=== PATIENT | female | born 1955 | race Caucasian/White ===

== ENCOUNTER 2021-12-02 10:00 | Inpatient (IN) | payer OTHER, MEDICARE ==
[~2021-12-02] VITALS: Ht 154.9 cm; Wt 80.2 kg
[2021-12-08 14:52] LABS: BASOPHILS % (AUTO) 0.4 % (0-1); EOSINOPHILS # (AUTO) 0.4 X10'3 (0-0.9); EOSINOPHILS % (AUTO) 3.3 % (0-6); LYMPHOCYTES # (AUTO) 2.3 X10'3 (1.1-4.8); LYMPHOCYTES % (AUTO) 21.9 % (21-51); MEAN CORPUSCULAR HEMOGLOBIN 30.1 PG (27.0-31.0); MEAN CORPUSCULAR HGB CONC 33.6 g/dL (33.0-36.5); MEAN CORPUSCULAR VOLUME 89.5 FL (78-98); MEAN PLATELET VOLUME 7.2 FL (7.4-10.4); MONOCYTES # (AUTO) 0.9 X10'3 (0-0.9); MONOCYTES % (AUTO) 8.7 % (2-12); NEUTROPHILS % (AUTO) 65.7 % (42-75); PRE OP HEMATOCRIT 39.3 % (35.0-45.0); PRE OP HEMOGLOBIN 13.2 g/dL (12.0-16.0); PRE OP PLATELET COUNT 329 X10'3 (140-440); RED CELL DISTRIBUTION WIDTH 13.7 % (11.5-14.5)
[2021-12-08 15:13] LABS: CHLORIDE 100 MMOL/L (99-107); PRE OP GLUCOSE 104 MG/DL (70-104); PRE OP POTASSIUM 3.7 MMOL/L (3.4-5.1); PRE OP SODIUM 140 MMOL/L (135-145); TOTAL CARBON DIOXIDE 31.3 MMOL/L (24-32)
[2021-12-08 15:14] LABS: ALBUMIN 3.7 G/DL (3.4-5.0); ALBUMIN/GLOBULIN RATIO 0.9 (1.1-1.5); ALKALINE PHOSPHATASE 115 IU/L (46-116); BLOOD UREA NITROGEN 24 MG/DL (7-18); BUN/CREATININE RATIO 25.3 (6.6-38.0); CALCIUM 9.6 MG/DL (8.5-10.1); CREATININE 0.95 MG/DL (0.40-0.90); PRE OP ALT 21 U/L (30-65); PRE OP ANION GAP 9 (8-16); PRE OP AST 18 U/L (10-37); PRE OP BILIRUB, TOTAL 0.3 MG/DL (0.0-1.0); TOTAL PROTEIN 7.7 G/DL (6.4-8.2); eGFR 59 ML/MIN
[2021-12-08] MEDS ORDERED: MONT10TA21 PO (17:04)
[2021-12-08] MEDS ORDERED: MELA10TA2 PO (17:04)
[2021-12-08] MEDS ORDERED: METO-411 PO (17:04)
[2021-12-08] MEDS ORDERED: SALM50DI2 IH (17:04)
[2021-12-08] MEDS ORDERED: CELE-28 PO (17:04)
[2021-12-08] MEDS ORDERED: CHOL500044 PO (17:04)
[2021-12-08] MEDS ORDERED: HYDR25TA4 PO (17:04)
[2021-12-08] MEDS ORDERED: LISI10TA27 PO (17:04)
[2021-12-15] MEDS ORDERED: DULO30CA52 PO (16:07)
[2021-12-16] VITALS (22 sets, daily range): BP systolic 110–182; BP diastolic 59–95
[2021-12-16] MEDS ORDERED: ringers solution, lacted 1,000 ML IV SCH ×2 (05:00→09:55)
[2021-12-16] MEDS ORDERED: famotidine 20mg tablet PO ONE (05:30)
[2021-12-16] MEDS ORDERED: vancomycin 1,500 MG in NS 300ml IV soln IV ONE (05:30)
[2021-12-16] MEDS ORDERED: DOCUMENT DATE & TIME OF BETA-BLOCKER PO ONE (05:30)
[2021-12-16] MEDS ORDERED: tranexamic acid inj. 1,000 MG in normal saline IV soln 100ML IV ONE (05:30)
[2021-12-16] MEDS ORDERED: ceFAZolin inj. 2,000 MG in dextrose 5%-water 100 ML IV ONE (05:30)
--- NOTE | 2021-12-16 08:30 | NUR ---
CSM: PEDAL PULSES PRESENT AND MARKED. PATIENT USED MUPIROCIN CREAM AND WATCHED THE VIDEO. EDUCATED PATIENT ON THE USE OF THE INCENTIVE SPIROMETER AND ITS IMPORTANCE
[2021-12-16] MEDS ORDERED: ketorolac trometh. 30mg/ml inj. ONE (09:44)
[2021-12-16] MEDS ORDERED: epiNEPHrine 1 mg/ml inj ONE (09:44)
[2021-12-16] MEDS ORDERED: ROPIVAcaine 0.5% (5mg/ml) 30ml vial ONE ×2 (09:45→11:43)
[2021-12-16] MEDS ORDERED: vancomycin 1,000mg inj ONE (09:45)
[2021-12-16] MEDS ORDERED: morphine 10mg/ml inj. ONE (09:45)
[2021-12-16] MEDS ORDERED: morphine 2 MG/ML inj. syringe IV PRN (09:55)
[2021-12-16] MEDS ORDERED: morphine 4 MG/ML inj SYRINge IV PRN (09:55)
[2021-12-16] MEDS ORDERED: meperidine/PF 25mg/ml syringe IV PRN ×3 (09:55)
[2021-12-16] MEDS ORDERED: ondansetron/PF 4mg/2ml inj IV PRN ×2 (09:55→13:50)
[2021-12-16] MEDS ORDERED: proCHLORperazine 10 MG/2 ml inj IV PRN (09:55)
[2021-12-16] MEDS ORDERED: MIDAZolam 1mg/ml 10ml vial ONE (10:46)
[2021-12-16] MEDS ORDERED: fentaNYL/PF 50MCG/1 ML 2ML syringe ONE (10:47)
[2021-12-16] MEDS ORDERED: propofol inj 20 ML IV ONE (11:43)
[2021-12-16] MEDS ORDERED: ROPIVAcaine 0.2% (10 MG/5 ML) BOLUS INJECTION ADDCANAL PRN (13:10)
[2021-12-16] MEDS ORDERED: ROPIVAcaine 0.2%/PF PUMP/bolus 545 ML ADDCANAL SCH (13:10)
[2021-12-16] MEDS ORDERED: bacitracin 15gm ointment TP ONE (13:39)
[2021-12-16] MEDS ORDERED: naloxone 0.4 mg/ml inj IV PRN (13:50)
[2021-12-16] MEDS ORDERED: HYDROmorphone inj. 0.5 MG/0.5 ML DISP.SYRIN IV PRN (13:50)
[2021-12-16] MEDS ORDERED: HYDROmorphone 1 mg/ml syringe IV PRN (13:50)
[2021-12-16] MEDS ORDERED: magnesium hydroxide 30ml (MOM) UD suspension PO PRN (13:50)
[2021-12-16] MEDS ORDERED: acetaminophen 325mg tablet PO PRN (13:50)
[2021-12-16] MEDS ORDERED: diphenhydrAMINE 25mg capsule PO PRN ×2 (13:50)
[2021-12-16] MEDS ORDERED: oxyCODONE IR 5mg (immed. release) tablet PO PRN (13:50)
[2021-12-16] MEDS ORDERED: bisacodyl 10mg suppository rectal RC PRN (13:50)
--- NOTE | 2021-12-16 14:17 | NUR ---
Received from OR via BED, accompanied by Anesthesiologist and report given by HEATH Anesthesiologist. PATIENT WAKING UP, DENIES PAIN, V/S WNL, SCD ON, 20G TO RIGHT HAND-20G, drsg to LEFT KNEE C/D/I with ICE PACK. ON-Q CATHETER NOTED WITH DRESSING C/D/I AND WILL START ROPIVACAINE DRIP AT 2 CC/HR. JAEGER CATHETER DRAINING CLEAR YELLOW URINE. Addendum: 12/16/21 at 1447 by Sami Lloyd RN Amended: Links added.
--- NOTE | 2021-12-16 16:07 | NUR ---
PATIENT HAS MET ALL CRITERIA FOR TRANSFER TO THE SURGICAL FLOOR. VSS. DRESSINGS INTACT. BED LOW, CALL LIGHT PRESENT AND 2 RAILS UP. RN PRESENT TO ACCEPT CARE OF PATIENT AND REPORT HAS BEEN CALLED. ALL QUESTIONS ANSWERED TO ACCEPTING RN. Addendum: 12/16/21 at 1613 by Sami Lloyd RN Amended: Links added.
[2021-12-16] MEDS: acetaminophen 325mg tablet PO SCH ×2 (17:12→20:00)
[2021-12-16] MEDS ORDERED: tranexamic acid inj. 800 MG in normal saline 100ml IV soln 92 ML IV ONE (17:30)
[2021-12-16] MEDS: ceFAZolin/D5W- 1GM premix 50 ML IV SCH (17:54)
[2021-12-16] MEDS: potassium cl 20mEq in 1/2 NS 1,000 ML IV SCH ×2 (17:56→21:50)
[2021-12-16] MEDS ORDERED: vancomycin/NS 1 GM ADD-VANTAGE 250 ML IV SCH (20:00)
[2021-12-16] MEDS ORDERED: sennosides 8.6mg tablet PO SCH (21:00)
[2021-12-16] MEDS: gabapentin 300mg capsule PO SCH (21:07)
[2021-12-17 01:00] VITALS: BP 125/60
[2021-12-17] MEDS: ceFAZolin/D5W- 1GM premix 50 ML IV SCH (01:43)
[2021-12-17] MEDS: oxyCODONE IR 5mg (immed. release) tablet PO PRN ×3 (01:45→10:30)
[2021-12-17] MEDS: acetaminophen 325mg tablet PO SCH ×2 (02:00→08:00)
[2021-12-17 05:00] VITALS: BP 135/60
[2021-12-17] MEDS: potassium cl 20mEq in 1/2 NS 1,000 ML IV SCH (05:50)
--- NOTE | 2021-12-17 06:44 | NUR ---
Patient in room [facility]. I have received report from Pat and had the opportunity to ask questions and assume patient care.
[2021-12-17] MEDS ORDERED: enoxaparin 40mg/0.4ml syringe SQ SCH (08:00)
[2021-12-17] MEDS: gabapentin 300mg capsule PO SCH (08:13)
[2021-12-17 10:00] VITALS: BP 198/65
--- NOTE | 2021-12-17 10:27 | NUR ---
Pt s/p L knee arthroplasty this admit per EMR. Written High protein diet ed w/ RD contact info placed in pt chart. Addendum: 12/17/21 at [address] Amended: Links added.
[2021-12-17] MEDS ORDERED: celeCOXIB 100mg capsule PO SCH (20:00)
[2021-12-18] MEDS ORDERED: acetaminophen 325mg tablet PO PRN (13:50)
== END 2021-12-17 13:55 | disposition home or self-care (01) | DRG 470 ==
LOC: PAS IN 12-16 08:07 → SUR 3N 12-16 16:45
PROVIDERS: ADMIT Orthopaedic Surgery; ATTEND Orthopaedic Surgery
PROC: 3E0T3BZ Introduction of Anesthetic Agent into Peripheral Nerves and Plexi, Percutaneous Approach (ICD-10-PCS; 2021-12-16)
PROC: 3E0T33Z Introduction of Anti-inflammatory into Peripheral Nerves and Plexi, Percutaneous Approach (ICD-10-PCS; 2021-12-16)
PROC: 0SRD0J9 Replacement of Left Knee Joint with Synthetic Substitute, Cemented, Open Approach (ICD-10-PCS; principal; 2021-12-16 10:45)
DX: M17.12 Unilateral primary osteoarthritis, left knee (principal)
CPT/HCPCS: 93306; Z7506; Z7508; 36415; 73560; 80053; 82948; 85025; 87081; 93005; 97110; 97116; 97162; 97530; A4215; A6253; A6258; A6446; A6449; A7000; C1713; C1776; C9250; G0378; J0171; J0690; J1650; J1885; J2250; J2274; J2704; J2795; J3010; J3370; J3480; J3490; J7040; J7060; J7120